=== PATIENT | female | born 1985 | race Caucasian/White ===

== ENCOUNTER 2023-08-25 13:09 | Emergency (ER) | payer SELFPAY ==
[2023-08-25 13:14] VITALS: BP 138/87; PULSE 107; RESP 18; TEMP 36.7; O2SAT 99; BMI 31.7
--- NOTE | 2023-08-25 13:22 | W.ED.ANXIETY ---
HPI - Anxiety General: Chief Complaint: Anxiety Stated Complaint: MHE, possible stroke symptoms Time Seen by Provider: 08/25/23 13:22 History of Present Illness: 37-year-old female presents emergency department with complaints of feeling very anxious. She states she has been seen by total of 3 providers today and states that she feels like she needs Valium. She states she does have Ativan at home but has not taken it. She states that she has history of partial temporal epilepsy that was unable to be treated and she for no reason 2 days ago started feeling anxious after having normal family outing. She states yesterday she felt like she was mostly manic although she states she did sit in bed and watch TV yesterday. She states that she is not stressed because of the upcoming holiday or life events. She denies recent injury or trauma. Review of Systems General: Reports: 10 or more systems reviewed and unremarkable except in HPI and below Psych: Reports: anxiety and irritability Physical Exam Narrative: EXAM NARRATIVE: Constitutional: the patient appears well nourished and with normal development. Vital signs reviewed as documented. HENMT: Normocephalic, atraumatic. Extermal ears with normal appearance without drainage. Nose without drainage, normal appearance. Mucus membranes moist. Neck is supple, No jugular venous distension, trachea is midline, no appreciable carotid bruits. No lymphadenopathy. No meningeal signs. Flexion, extension and lateral rotation is without pain. Eyes: Pupils are equal, round, reactive to light and accommodation. No scleral icterus. Extra-ocular movement are intact. Thorax is symmetrical and with equal rise and fall with respirations. Resp: Lungs are clear to auscultation. No wheezes, rales, crackles or ronchi at present. Cardio: Regular rate and rhythm. Positive S1, S2. No appreciable murmurs, rubs or gallops. GI: Abdominal exam reveals normal bowel sounds to all quadrants. No organomegaly. No obvious palpable masses noted. No hepatomegally appreciated. Soft, nontender to palpation. Extremity: Extremities are non-edematous and both femoral and pedal pulses are 2+ and equal bilaterally. Moves all extremities well, sensation in all extremities. Neuro: Alert and oriented x4, person, place, time and situation. Cranial nerves II through XII are grossly intact, there is no focal neurological deficits that I can appreciate at present. Motor strength in the upper and lower extremities are equal and bilateral 5/5. Psych: Cooperative, anxious appearing, normal thought process, appropriate judgment. Skin: No lesions, rashes. No gross abnormalities noted. Back: Symmetrical, no obvious deformity, No CVA tenderness Course Vital Signs: Vital signs: Vital Signs Temperature 98.0 F 08/25/23 13:14 Pulse Rate 107 H 08/25/23 13:14 Respiratory Rate 18 08/25/23 13:14 Blood Pressure 138/87 08/25/23 13:14 Pulse Oximetry 99 08/25/23 13:14 Oxygen Delivery Me thod Room Air 08/25/23 13:14 MDM - Anxiety Medical Decision Making Physical exam completed, given the patient's presenting concerns I will offer her hydroxyzine to help stabilize her anxiety and will recommend that she follow-up with her behavioral health and crisis counselor as previously discussed. No radiology studies performed this visit Discharge Plan Discharge Patient Disposition: Home Clinical Impression: Acute anxiety Condition: Stable Prescriptions: New hydroxyzine HCl 50 mg tablet 50 mg PO BID PRN (Reason: anxiety) Qty: 14 0RF Discharge Orders: Discharge ED (Routine); Ordered 08/25/23 Ordered By: Travis Rice Discharge Diet: Advance as tolerated Discharge Activity: Resume usual activity Patient Instructions: Opioid Safety, Pain Management Activity Restrictions/Additional Instructions: Activity Restrictions/Additional Instructions: Thank you for choosing [facility] for your healthcare needs today. Please realize that you were seen in the Emergency Department and that we are providing you with an emergency medical screening exam and this may not be complete and all inclusive of all the testing and or medical work-up that you may need to determine your ailment or severity of your illness. It is very important that you follow-up as instructed with your Primary care provider or Specialist for additional evaluation and to discuss your medical treatment plan. You may return to the Emergency Department should you have concerns or if your condition changes or worsens in any way. Coding Level of Care Code ED Birth Certificate Clerk for Татьяна Niño
== END 2023-08-25 14:15 | disposition home or self-care (01) ==
PROVIDERS: Emergency Provider Internal Medicine
DX: F41.9 Anxiety disorder, unspecified (principal)
CPT/HCPCS: 99283

== ENCOUNTER 2024-09-02 17:07 | Emergency (ER) | payer SELFPAY ==
[2024-09-02 17:22] VITALS: BP 145/89; PULSE 133; RESP 16; TEMP 36.7; O2SAT 99; BMI 26.2
--- NOTE | 2024-09-02 17:30 | ECG_ITS ---
[facility] Date: 2024-[facility]-02 Pat Name: Edward Dooley Department: Room: Gender: Female Tax Adjuster: : 1985 Requested By: Gerardo Medina Order Number: [id number] Bassam MD: Dinesh Gonzales M.D. Measurements Intervals [place] Rate: 129 P: 74 AR: 151 QRS: 81 QRSD: 89 T: 77 QT: 334 QTc: 490 Interpretive Statements SINUS TACHYCARDIA NONSPECIFIC T-WAVE ABNORMALITY No previous ECG available for comparison Electronically Signed On 09-03-2024 18:51:12 OPTICAL ASSISTANT by Dinesh Gonzales M.D. [id number]
--- NOTE | 2024-09-02 18:03 | CTR_ITS ---
PROCEDURE INFORMATION: Exam: CT Head Without Contrast Exam date and time: 09/02/2024 7:42 PM Age: 38 years old Clinical indication: Syncope and collapse; Patient HX: C/O bilateral lower ext weakness after syncopal episode. TECHNIQUE: Imaging protocol: Computed tomography of the head without contrast. Radiation optimization: All CT scans at this facility use at least one of these dose optimization techniques: automated exposure control; mA and/or kV adjustment per patient size (includes targeted exams where dose is matched to clinical indication); or iterative reconstruction. COMPARISON: No relevant prior studies available. RADIATION DOSE METRICS: Total DLP (mGy-cm): 947.98 FINDINGS: Brain: Normal. No hemorrhage. Unremarkable white matter. No mass effect. Cerebral ventricles: No ventriculomegaly. Paranasal sinuses: Visualized sinuses are unremarkable. No fluid levels. Mastoid air cells: Visualized mastoid air cells are well aerated. Bones: Unremarkable. No acute fracture. Soft tissues: Unremarkable. CT/CT head wo con* [id number] IMPRESSION: No acute intracranial abnormality.
--- NOTE | 2024-09-02 18:03 | XRR_ITS ---
PROCEDURE INFORMATION: Exam: XR Chest Exam date and time: 09/02/2024 6:31 PM Age: 38 years old Clinical indication: Patient HX: Syncope; Weakness; Intermittent lower ext numbness TECHNIQUE: Imaging protocol: Radiologic exam of the chest. Views: 1 view. COMPARISON: No relevant prior studies available. FINDINGS: Lungs: Unremarkable. No consolidation. Pleural spaces: Unremarkable. No pleural effusion. No pneumothorax. Heart/Mediastinum: Unremarkable. No cardiomegaly. Bones/joints: Unremarkable. XR/XR chest 1V portable [id number] IMPRESSION: No acute findings.
[2024-09-02 18:22] LABS: Basophils % 0.4 %; Eosinophils % 0.3 %; Hematocrit 42.5 % (36-47); Lymphocytes # 2.8 10^3/uL (0.8-4.8); Lymphocytes % 28.9 %; Mean Corpuscular HGB Conc 33.9 g/dL (30-55); Mean Corpuscular Hemoglobin 31.4 pg (27-33); Mean Corpuscular Volume 92.6 fl (85-98); Mean Platelet Volume 11.9 fL (7.4-10.4); Monocytes # 0.7 10^3/uL (0.2-0.9); Monocytes % 7.4 %; Neutrophils % 62.8 %; Nucleated Red Blood Cells % 0 %; Platelet Count 161 10^3/cmm (157-399); Red Blood Count 4.59 10^6/uL (3.85-5.65); White Blood Count 9.57 10^3/uL (3.29-11.43)
[2024-09-02 18:37] LABS: HCG, Serum Qual Negative (Negative); INR 0.99 (0.8-1.2)
[2024-09-02 18:38] LABS: Partial Thromboplastin Time 26.9 SECONDS (23.9-36.7)
[2024-09-02 18:45] LABS: Troponin(5th) Baseline < 6 ng/L (0-10)
[2024-09-02 18:52] LABS: Alanine Aminotransferase 9 U/L (0-33); Albumin Level 4.6 g/dL (3.5-5.2); Alcohol Level < 10 mg/dL (0-10); Alkaline Phosphatase 60 U/L (35-105); Anion Gap 16.8 (5-19); Aspartate Amino Transferase 12 U/L (0-32); Blood Urea Nitrogen 15 mg/dL (6-20); Calcium 9.7 mg/dL (8.5-10.5); Carbon Dioxide 21 mmol/L (22-29); Chloride 103 mmol/L (98-107); Creatinine Clr Calc Pharmacy 118.8726; Glomerular Filtration Rate 112.5 mL/min (90-130); Glucose 200 mg/dL (65-115); Magnesium 1.8 mg/dL (1.7-2.3); Osmolality Calculated 290 mOsm/kg (285-295); Potassium 3.8 mmol/L (3.5-5.1); Sodium 137 mmol/L (136-145); Thyroid Stimulating Hormone 1.35 uIU/mL (0.27-4.20); Total Bilirubin 0.4 mg/dL (0.15-1.2); Total Protein 6.6 g/dL (6.6-8.7)
[2024-09-02 19:38] VITALS: BP 136/83; PULSE 83; O2SAT 100
[2024-09-02 20:00] VITALS: BP 123/80; PULSE 82; O2SAT 97
--- NOTE | 2024-09-02 20:06 | ECG_ITS ---
[facility] Date: 2024-09-02 Pat Name: Edward Dooley Department: Room: Gender: Female Resident Engineer: : 1985 Requested By: Jhon Patel Order Number: [id number] Bassam MD: Dinesh Gonzales M.D. Measurements Intervals [place] Rate: 79 P: 22 FL: 157 QRS: 45 QRSD: 86 T: 37 QT: 349 QTc: 400 Interpretive Statements SINUS RHYTHM Compared to ECG 09/02/2024 17:32:52 Sinus tachycardia no longer present T-wave abnormality no longer present Electronically Signed On 09-03-2024 19:02:51 TUBING MACHINE OPERATOR by Dinesh Gonzales M.D. [id number]
--- NOTE | 2024-09-02 20:13 | W.ED.WEAKNES ---
HPI - Weakness General: Chief complaint: Weakness Stated complaint: numb legs Time Seen by Provider: 09/02/24 18:42 History of Present Illness: Patient presents to the ER with complaints of her legs giving out on her x 2 today. She said at first she is unable to stand back up and that she stood up with assistance. She has not had a thing on the way down and does not hurt. She complains of numbness tingling weakness in both both bilateral quad areas. She said she is able to use them now but that they still do not feel quite right. Over the last several days patient is been also having memory issues and headache. 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 Review of Systems General: Reports: 10 or more systems reviewed and unremarkable except in HPI and below [facility] ED Female Reproductive History: Date of last menstrual period: 08/17/24 Physical Exam Const: COMMON NORMALS: no acute distress, average body habitus, patient oriented x3, no limitations, healthy appearing, alert and well nourished HENMT: COMMON NORMALS: normocephalic, atraumatic, hearing grossly normal bilaterally, external ears normal, Normal external nose present and moist oral mucous membranes HEAD & SCALP: normocephalic and atraumatic NOSE: Normal external nose present EXTERNAL EAR: Yes external ears normal Neck/C-Spine: COMMON NORMALS: full ROM, no lymphadenopathy, supple, no meningeal signs, no JVD and Thyroid normal THYROID: Thyroid normal Chest: COMMONS NORMALS: normal inspection of the chest and normal palpation of entire chest wall Resp: COMMON NORMALS: normal respiratory effort, No retractions, No use of accessory muscles and clear to auscultation bilaterally AUSCULTATION: clear to auscultation bilaterally Cardio: COMMON NORMALS: no JVD, regular rate, regular rhythm, S1 normal heart sound present, S2 normal heart sound present, No gallops present (Cardio), No clicks present (Cardio), No murmurs present (Cardio) and No rub (Cardio) RATE: regular rate RHYTHM: regular rhythm HEART SOUNDS: S1 normal heart sound present and S2 normal heart sound present GI: COMMON NORMALS: Normal to inspection, nondistended, normoactive bowel sounds present, Soft to palpation, non-tender, No hepatosplenomegaly present and no masses PALPATION: Yes Soft to palpation and Yes No hepatosplenomegaly present Neuro: COMMON NORMALS: patient oriented x3 SENSORIUM/ORIENTATION: Yes alert MENINGEAL SIGNS: Yes no meningeal signs Course Vital Signs: Vital signs: Vital Signs Temperature 98.1 F 09/02/24 17:22 Pulse Rate 133 H 09/02/24 17:22 Respiratory Rate 16 09/02/24 17:22 Blood Pressure 145/89 09/02/24 17:22 Pulse Oximetry 99 09/02/24 17:22 MDM - Weakness Medical Decision Making Lab work was obtained included CBC CMP ethyl alcohol TSH hCG PT/INR all of which was essentially benign. Chest x-ray and head CT showed no acute abnormalities. These results was discussed with the patient toe results do not match her symptomatology and she needs further evaluation treatment. Patient needs to follow back up with her primary care. Medical Records I reviewed the patient's medical records. Lab Data I reviewed the patient's lab results. 09/02/24 18:17 09/02/24 18:17 Radiology Impressions Chest X-Ray 09/02/24 18:03 IMPRESSION: No acute findings. Head CT 09/02/24 18:03 IMPRESSION: No acute intracranial abnormality. Laboratory Results WBC 9.57 10^3/uL (3.29-11.43) 09/02/24 18:17 RBC 4.59 10^6/uL (3.85-5.65) 09/02/24 18:17 Hgb 14.40 g/dL (11.27-16.99) 09/02/24 18:17 Hct 42.5 % (36-47) 09/02/24 18:17 MCV 92.6 fl (85-98) 09/02/24 18:17 MCH 31.4 pg (27-33) 09/02/24 18:17 MCHC 33.9 g/dL (30-55) 09/02/24 18:17 RDW 12.0 % (12.1-15.1) L 09/02/24 18:17 Plt Count 161 10^3/cmm (157-399) 09/02/24 18:17 MPV 11.9 fL (7.4-10.4) H 09/02/24 18:17 Neut % (Auto) 62.8 % 09/02/24 18:17 Lymph % (Auto) 28.9 % 09/02/24 18:17 [place] % (Auto) 7.4 % 09/02/24 18:17 Eos % (Auto) 0.3 % 09/02/24 18:17 Baso % (Auto) 0.4 % 09/02/24 18:17 Neut # (Auto) 6.00 10^3/uL (1.8-7.7) 09/02/24 18:17 Lymph # (Auto) 2.8 10^3/uL (0.8-4.8) 09/02/24 18:17 [place] # (Auto) 0.7 10^3/uL (0.2-0.9) 09/02/24 18:17 Eos # (Auto) 0.0 10^3/uL (0.0-0.8) 09/02/24 18:17 Baso # (Auto) 0.0 10^3/uL (0.0-0.1) 09/02/24 18:17 Nucleated RBC % (auto) 0 % 09/02/24 18:17 Nucleated RBCs # 0.0 /100WBC 09/02/24 18:17 PT 13.40 SECONDS (12.1-14.9) 09/02/24 18:17 INR 0.99 (0.8-1.2) 09/02/24 18:17 APTT 26.9 SECONDS (23.9-36.7) 09/02/24 18:17 Sodium 137 mmol/L (136-145) 09/02/24 18:17 Potassium 3.8 mmol/L (3.5-5.1) 09/02/24 18:17 Chloride 103 mmol/L (98-107) 09/02/24 18:17 Carbon Dioxide 21 mmol/L (22-29) L 09/02/24 18:17 Anion Gap 16.8 (5-19) 09/02/24 18:17 BUN 15 mg/dL (6-20) 09/02/24 18:17 Creatinine 0.6 mg/dL (0.5-0.9) 09/02/24 18:17 GFR Calculation 112.5 mL/min (90-130) 09/02/24 18:17 Glucose 200 mg/dL (65-115) H 09/02/24 18:17 Calculated Osmolality 290 mOsm/kg (285-295) 09/02/24 18:17 Calcium 9.7 mg/dL (8.5-10.5) 09/02/24 18:17 Magnesium 1.8 mg/dL (1.7-2.3) 09/02/24 18:17 Total Bilirubin 0.4 mg/dL (0.15-1.2) 09/02/24 18:17 AST 12 U/L (0-32) 09/02/24 18:17 ALT 9 U/L (0-33) 09/02/24 18:17 Alkaline Phosphatase 60 U/L (35-105) 09/02/24 18:17 Troponin T Baseline < 6 ng/L (0-10) 09/02/24 18:17 Troponin T 120 Minute 6.00 ng/L (0-10) 09/02/24 20:16 Delta Troponin T 0.20064 ABS# (0-10) 09/02/24 20:16 C-Reactive Protein 3.0 mg/L (0.0-4.9) 09/02/24 18:27 Total Protein 6.6 g/dL (6.6-8.7) 09/02/24 18:17 Albumin 4.6 g/dL (3.5-5.2) 09/02/24 18:17 Globulin 2.0 g/dL (1.3-4.6) 09/02/24 18:17 TSH 1.35 uIU/mL (0.27-4.20) 09/02/24 18:17 HCG, Qual Negative (Negative) 09/02/24 18:17 Ethyl Alcohol < 10 mg/dL (0-10) 09/02/24 18:17 All radiology interpretation(s) finalized by discharge Discharge Plan Discharge Patient Disposition: Home Clinical Impression: Weakness of both lower extremities, Paresthesias Condition: Stable Prescriptions: No Action hydroxyzine HCl 50 mg tablet 50 mg PO BID PRN (Reason: anxiety) Qty: 14 0RF Discharge Orders: Discharge ED (Routine); Ordered 09/02/24 Ordered By: Gerardo Medina Referrals: Jose Streeter FITNESS AND WELLNESS COORDINATOR [Primary Care Provider] - 1 week Patient Instructions: Weakness (Generalized), Paresthesia (ED) Activity Restrictions/Additional Instructions: The lab work, blood work, chest x-ray, head CT all performed in the ER come back within normal limits, we cannot explain your symptomatology. Please follow back up with your family practice physician within next 7 to 10 days for further evaluation and treatment. Thank you for choosing [facility] for your healthcare needs today. Please realize that you were seen in the emergency department and that we are providing you with an emergency medical screening exam and this may not be a complete and all exclusive of all testing and/or medical workup we may need to determine your element or severity of your illness. It is very important that you follow-up as instructed with your primary care provider or specialist for the additional evaluation and to discuss your medical treatment plan. You may return to the emergency department should you have concerns or if your condition changes or worsens in any way. Coding Level of Care Code ED [place] Sawyer for Татьяна Niño Related Data Previous Rx's Medication Instructions Recorded hydroxyzine HCl 50 mg tablet 50 mg PO BID PRN anxiety #14 tabs 08/25/23 Allergies Allergy/AdvReac Type Severity Reaction Status Date / Time No Known Allergies Allergy Verified 09/02/24 17:30
[2024-09-02 20:40] LABS: Troponin 5 2HR Delta 0.00001 ABS# (0-10)
[2024-09-02 21:00] VITALS: BP 113/81; PULSE 82; O2SAT 100
[2024-09-02 22:21] VITALS: BP 115/82; PULSE 75; O2SAT 99
== END 2024-09-02 22:23 | disposition home or self-care (01) ==
PROVIDERS: Emergency Medicine; Emergency Provider Emergency Medicine; PCP Nurse Practitioner
DX: R53.1 Weakness (principal); R20.2 Paresthesia of skin
CPT/HCPCS: 36415; 70450; 71045; 80053; 80307; 83735; 84443; 84484; 84703; 85025; 85610; 85730; 86140; 93005; 99285